=== PATIENT | male | born 1935 | race Caucasian/White ===

== ENCOUNTER → 2016-12-07 | Day surgery (SDC) | payer MEDICARE, BC ==
[~2016-12-07] MED LIST: ACETAMINOPHEN PO; ALAVERT10 M3 PO; ALAVERT10 MG PO; AMLODIPINE BESYL5 MG PO; ASPIRIN; ASPIRIN ENTERI325 M1 PO; ASPIRIN81 M1 PO; ASPIRIN81 MG PO; ATENOLOL; CIPRO PO; CLARITIN10 M3 PO; FIBER1 G PO; FLOMAX0.4 MG PO; KEPPRA500 M1 PO; LISINOPRIL; LO-DOSE ASPIRIN81 M1 PO; LORTAB 7.5-5001 TAB PO; NEXIUM PO; OMEPRAZOLE40 MG PO; OSTEO BI-FLEX1 EAC5 PO; PRILOSEC PO; PRILOSEC40 MG; TYLOX1 CAP 5/50 PO; ZESTRIL10 M2 PO; [UNRECOGNIZED DRUG - OTHER]
--- NOTE | ~2016-12-07 | OR ---
Unit #: [id number] #: [id number] Patient: ELLEN VACA [id number] [address] [address] [id number] MR#: [id number] NAME: ELLEN VACA. ROOM: Date of Procedure: 12/07/2016 Admission Date: 12/07/2016 Surgeon: Gómez Hurst M.D. : 1935 Attending Physician: Gómez Hurst M.D. Primary Care Physician: Tanvir Aguilar M.D. OPERATIVE REPORT PROCEDURES PERFORMED Esophagogastroduodenoscopy with biopsy. INDICATIONS FOR PROCEDURE Epigastric pain, history of peptic ulcer disease. MEDICATIONS Monitored anesthesia. POSTOPERATIVE FINDINGS 1. Small hiatal hernia. Diffuse gastritis. Biopsies taken. No ulcers were seen. 2. Normal duodenum and distal duodenum. PLAN Continue PPI therapy. Follow up on pathology report. DESCRIPTION OF PROCEDURE The patient was explained of the procedure, risks, and benefits along with the risks and benefits of anesthesia. He was brought to the endoscopy room. Propofol anesthesia was given. Bite block was placed. The scope was passed down the mouth into esophagus, stomach, duodenum, and distal duodenum. Findings as described. Biopsies taken. Gently, I pulled it out of the patient's mouth. He tolerated it well. No major complications were seen. Dictated by... Sabrina Machado/torri TD: 12/07/2016 18:45 JOB #: [id number] Unit #: [id number] #: [id number] Patient: ELLEN VACA OPERATIVE REPORT Page 1 of 1 X Gómez Hurst MD X PROCEDURE OPERATIVE NOTE
== END | disposition home or self-care (01) ==
LOC: COPS 07:18
DX: K29.50 Unspecified chronic gastritis without bleeding (principal); K44.9 Diaphragmatic hernia without obstruction or gangrene; K21.9 Gastro-esophageal reflux disease without esophagitis; I10 Essential (primary) hypertension; Z88.8 Allergy status to other drugs, medicaments and biological substances; Z79.82 Long term (current) use of aspirin; Z79.899 Other long term (current) drug therapy; Z98.41 Cataract extraction status, right eye; Z87.11 Personal history of peptic ulcer disease; Z98.42 Cataract extraction status, left eye
CPT/HCPCS: 88305; 88312